=== PATIENT | male | born 1975 | race Two or more races ===

== ENCOUNTER 2020-07-11 12:38 | Emergency (ER) | payer OTHER ==
[~2020-07-11] VITALS: Ht 172.7 cm; Wt 111.1 kg
[2020-07-11 13:04] VITALS: BP 126/87
[2020-07-11] MEDS ORDERED: ONDANSETRON ODT 4 MG TAB PO ONE ×2 (14:00→14:01)
== END 2020-07-11 15:27 | disposition home or self-care (01) ==
LOC: ER 12:38
DX: B34.9 Viral infection, unspecified (principal); I10 Essential (primary) hypertension; Z20.828 Contact with and (suspected) exposure to other viral communicable diseases
CPT/HCPCS: 36415; 71045; 87426; 99284; Q0162

== ENCOUNTER 2025-08-11 22:27 | Emergency (ER) | payer OTHER ==
[~2025-08-11] VITALS: Ht 177.8 cm; Wt 113.6 kg
[2025-08-11] MEDS: ONDANSETRON ODT 4 MG TAB PO ONE (23:37)
[2025-08-11] MEDS: MORPHINE SULFATE 4 MG/ML SYR/VIAL ONE (23:38)
[2025-08-11] MEDS: MORPHINE SULFATE INJ 2 MG/ml SYRG IM ONE (23:38)
--- NOTE | 2025-08-12 00:49 | DVH ---
MEDICAL RECORDS NUMBER: [id number] PROCEDURE: CT CERVICAL WITHOUT CONTRAST Date: 08/11/2025 11:59 PM HISTORY: neck pain Contrast: None COMPARISON: None RADIATION DOSE INFORMATION: Automated exposure control dose reduction techniques were used. Dose: CTDIvol: 26.2 mGy, DLP: 746 mGy.cm TECHNIQUE: Multiple contiguous axial sections of cervical spine were obtained without contrast. Sagittal and coronal reconstructions were also performed. FINDINGS: There is no acute displaced fracture. There is straightening of the cervical lordosis. There are degenerative changes of the cervical spine characterized by endplate osteophytosis and intervertebral disc space narrowing, most pronounced at C5-6. Degenerative uncovertebral and facet hypertrophy contribute to multilevel neural foraminal narrowing. The paraspinal soft tissues are unremarkable. IMPRESSION: 1. No acute displaced fracture. 2. Degenerative changes of the cervical spine as detailed. 3. If clinical symptoms persist, MRI may be beneficial in further evaluation.
--- NOTE | 2025-08-12 00:54 | DVH ---
MEDICAL RECORDS NUMBER: [id number] PROCEDURE: XY L SHOULDER 2+ VIEW XRAY DATE: 08/11/2025 11:45 PM HISTORY: left shoulder pain COMPARISON: None FINDINGS/IMPRESSION: Minor degenerative changes are seen. No fracture or dislocation or other acute process is seen.
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
[2025-08-12] MEDS: levETIRAcetam 1000 mg/100ml 100 ML IV ONE (01:00)
[2025-08-12] MEDS ORDERED: LABETALOL HCL 20 MG/4 ML VL IV PRN (01:00)
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
[2025-08-12 01:25] VITALS: PULSE 73; RESP 14; O2SAT 96
[2025-08-12 01:38] LABS: Hematocrit 48.1 % (41.0-53.0); Hemoglobin 16.5 g/dL (13.5-17.5); Mean Corpuscular Hemoglobin 29.1 pg (28.0-32.0); Mean Corpuscular Volume 85.0 fL (80.0-100.0); Nucleated Red Blood Cells % 0.2 %
[2025-08-12 01:43] LABS: INR 1.03 (0.9-1.15); Prothrombin Time 10.9 sec (9.3-11.8)
[2025-08-12 01:50] LABS: Alkaline Phosphatase 64 U/L (46-116); Anion Gap 14 (5-15); BUN/Creatinine Ratio 10.2 (10.0-20.0); Calcium 10.1 mg/dL (8.7-10.4); Carbon Dioxide 23 mmol/L (20-31); Chloride 104 mmol/L (98-107); Magnesium 2.2 mg/dL (1.6-2.6); Potassium 3.8 mmol/L (3.5-5.1); Sodium 141 mmol/L (136-145); Total Protein 7.8 g/dL (5.7-8.2)
[2025-08-12 01:51] LABS: Bilirubin, Total 0.4 mg/dL (0.2-1.0)
[2025-08-12 01:57] LABS: Alanine Aminotransferase 66 U/L (7-40); Albumin 4.9 g/dL (3.2-4.8); Blood Urea Nitrogen 9 mg/dL (9-23); Glucose 148 mg/dL (74-106)
[2025-08-12] MEDS ORDERED: LIDOCAINE HCL 5 % TOP OINT 35 GM TOP ONE (02:15)
[2025-08-12 02:20] LABS: Lactic Acid w/Reflex 2.7 mmol/L (0.4-2.0)
[2025-08-12 02:26] VITALS: BP 137/96; PULSE 88; RESP 18; TEMP 98.2; O2SAT 95
[2025-08-12] MEDS: ACETAMINOPHEN IV 1000 MG/100ML (10MG/ML) IV ONE (02:49)
--- NOTE | 2025-08-12 08:41 | DVH ---
PATIENT NAME: SCAR TATE : 1975 GENDER: M LOCATION: [facility] DOS: 08/11/2025 INTERPRETING PROVIDER: Keith Nugent [id number] MEDICAL RECORDS NUMBER: [id number] PROCEDURE: XY R SHOULDER 2+ VIEW XRAY DATE: 08/11/2025 11:45 PM HISTORY: right shoulder pain COMPARISON: XY L SHOULDER 2+ VIEW XRAY on DOS: 08/11/25 FINDINGS/IMPRESSION: Minor degenerative changes are seen. No fracture or dislocation or other acute process is seen. [facility]
== END 2025-08-12 03:09 | disposition short-term general hospital (02) ==
LOC: EDBD 22:27 → ER 22:27
DX: M25.512 Pain in left shoulder (principal); M25.511 Pain in right shoulder; R42 Dizziness and giddiness; I10 Essential (primary) hypertension; V43.52XA Car driver injured in collision with other type car in traffic accident, initial encounter; Y93.89 Activity, other specified; Y92.410 Unspecified street and highway as the place of occurrence of the external cause; Y99.8 Other external cause status
CPT/HCPCS: 36415; 70450; 72125; 73030; 80053; 83605; 83735; 84100; 84484; 85025; 85610; 96372; 96374; 96375; 99285; J1953; J2270; Q0162; J0131